=== PATIENT | male | born 1995 | race Caucasian/White ===

== ENCOUNTER 2017-11-01 21:10 | Inpatient (IN) | payer OTHER ==
[~2017-11-01] VITALS: Ht 185.4 cm; Wt 70.3 kg
--- NOTE | 2017-11-01 21:45 | NUR ---
INTAKE ASSESSMENT PT RECEIVED A/A/O X4.HE IS HERE BECAUSE HE HAS BEEN ABUSING HIS PRESCRIPTION ATIVAN.DENIES ANY OTHER DRUG USE.PT HAS HX OF ALCOHOL ABUSE BUT HE HAS BEEN SOBER SINCE JULY 2016.VITAL SIGNS ARE STABLE.SPEECH IS CLEAR AND COHERENT.GAIT IS STEADY.PT IS C/O OF ANXIETY,TREMORS AND MILD HEADACHE.HE IS IN A STABLE CONDITION TO PROCEED TO [facility].
[2017-11-01] MEDS ORDERED: DICYCLOMINE HCL 20 MG TABLET PO PRN (22:15)
[2017-11-01] MEDS ORDERED: MAG HYDROX/AL HYDROX/SIMETH 30 ML LIQUID UDC PO PRN (22:15)
[2017-11-01] MEDS ORDERED: MAGNESIUM HYDROXIDE 30 ML LIQUID UDC PO PRN (22:15)
[2017-11-01] MEDS ORDERED: LORAZEPAM 2 MG/1 ML VIAL IM PRN (22:15)
[2017-11-01] MEDS ORDERED: THIAMINE HCL 200 MG/2 ML VIAL IM ONE (22:15)
[2017-11-01] MEDS ORDERED: ONDANSETRON ODT 4 MG TAB.RAPDIS SL PRN (22:15)
[2017-11-01] MEDS ORDERED: LOPERAMIDE HCL 2 MG CAPSULE PO PRN ×2 (22:15)
[2017-11-01] MEDS ORDERED: IBUPROFEN 400 MG TABLET PO PRN (22:15)
[2017-11-01] MEDS ORDERED: ONDANSETRON 4 MG/2 ML VIAL IM PRN (22:15)
[2017-11-01] MEDS ORDERED: ACETAMINOPHEN 325 MG TABLET PO PRN (22:15)
[2017-11-01] MEDS ORDERED: MIRALAX 17 GM POWD.PACK PO PRN (22:15)
[2017-11-01] MEDS ORDERED: LORAZEPAM 1 MG TABLET PO PRN ×2 (22:15)
--- NOTE | 2017-11-01 22:30 | NUR ---
ADMISSION NOTE HT=6 FEET, 1 INCH. BW=685 POUNDS. NKDA; NKFA. CIWA=9 B/P=147/70; T=98.2; P=101; R=18; O2 SAT =97% ON RA. 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 notified.All safety measures in place per hospital policy.Call light is within reach. Will continue to monitor for safety. Addendum: 11/02/17 at 0059 by MAHOGANY CABRERA RN CORRECTION---PT STATED THAT HE HAS BEEN SOBER FROM ALCOHOL SINCE JULY 2017.
[2017-11-01] MEDS ORDERED: SERT50TA PO (22:44)
[2017-11-01] MEDS ORDERED: S-AD200T6 PO (22:44)
[2017-11-01] MEDS ORDERED: NALT50TA PO (22:44)
[2017-11-01] MEDS ORDERED: LORA1TAB PO (22:44)
[2017-11-01] MEDS ORDERED: TYROSINE PO (22:44)
[2017-11-01] MEDS ORDERED: OMEG1CAP40 PO (22:44)
[2017-11-01] MEDS ORDERED: 5-HY50CA2 PO (22:44)
[2017-11-01 22:45] LABS: *AMPHETAMINE, URINE NEGATIVE (NEGATIVE); *BARBITURATE, URINE NEGATIVE (NEGATIVE); *CANNABINOID, URINE NEGATIVE (NEGATIVE); *COCCAINE, URINE NEGATIVE (NEGATIVE); *OPIATE, URINE NEGATIVE (NEGATIVE); *PHENCYCLIDINE SCREEN,URINE NEGATIVE (NEGATIVE)
[2017-11-01 22:59] LABS: BASOPHILS # (AUTO) 0.1 K/uL (0.0-8.0); BASOPHILS % (AUTO) 0.7 % (0.0-2.0); HEMATOCRIT 41.7 % (36.7-47.1); HEMOGLOBIN 14.3 g/dL (12.5-16.3); LYMPHOCYTES # (AUTO) 1.4 K/uL (20.0-40.0); LYMPHOCYTES % (AUTO) 14.9 % (20.5-51.5); MEAN CORPUSCULAR HEMOGLOBIN 31.5 uug (23.8-33.4); MEAN CORPUSCULAR HGB CONC 34 g/dL (32.5-36.3); MEAN CORPUSCULAR VOLUME 91.6 fL (73.0-96.2); MONOCYTES # (AUTO) 0.2 K/uL (2.0-10.0); MONOCYTES % (AUTO) 2.6 % (0.0-11.0); NEUTROPHILS # (AUTO) 7.9 K/uL (1.8-8.9); NEUTROPHILS % (AUTO) 81.8 % (38.5-71.5); PLATELET COUNT (AUTO) 233 K/uL (152-348); RED BLOOD CELL COUNT(AUTO) 4.56 MIL/uL (4.06-5.63); WHITE BLOOD COUNT (AUTO) 9.6 K/uL (3.6-10.2)
[2017-11-01] MEDS ORDERED: DIAZEPAM 10 MG TABLET PO PRN ×2 (23:00)
[2017-11-01] MEDS ORDERED: DIAZEPAM 5 MG TABLET PO PRN (23:00)
[2017-11-01 23:10] LABS: ALANINE AMINOTRANSFERASE 45 U/L (16-63); ALKALINE PHOSPHATASE 72 U/L (50-136); AMYLASE 52 U/L (25-115); ASPARTATE AMINOTRANSFERASE 32 U/L (15-37); BILIRUBIN,TOTAL 0.4 mg/dL (0.2-1.0); CARBON DIOXIDE 28 mmol/L (21-32); CHLORIDE 98 mmol/L (98-107); GLUCOSE 122 mg/dL (74-106); LIPASE 77 U/L (73-393); POTASSIUM 3.5 mmol/L (3.5-5.1); TOTAL PROTEIN, SERUM 8.3 g/dL (6.4-8.2); UREA NITROGEN, BLOOD 11 mg/dL (7-18)
--- NOTE | 2017-11-01 23:10 | NUR ---
PRN MED PT C/O FEELING ANXIOUS,HAVING TREMORS AND MILD HEADACHE.PRN VALIUM 10 MG PO GIVEN FOR CIWA=9.WILL MONITOR.
[2017-11-01 23:15] LABS: ETHANOL < 3 MG/DL (0-0)
[2017-11-01 23:21] LABS: THYROID STIMULATING HORMONE 0.707 mIU/mL (0.358-3.740)
[2017-11-02] VITALS: BP 125/79
--- NOTE | 2017-11-02 00:10 | NUR ---
PT STATES FEELING BETTER.CIWA=3.
[2017-11-02 04:00] VITALS: BP 94/44
--- NOTE | 2017-11-02 04:05 | NUR ---
PRN VALIUM 5 MG PO GIVEN FOR CIWA OF 6.PT IS C/O ANXIETY,RESTLESSNESS AND IS UNABLE TO SIT STILL.WILL CONTINUE TO MONITOR FOR EFFECTIVENESS.
[2017-11-02] MEDS ORDERED: GABA-534 PO (04:22)
--- NOTE | 2017-11-02 05:00 | NUR ---
Unable to assess for CIWA at this time due to Pt being asleep;breathing is even and non labored;all safety measures in place;will be monitored for safety.
--- NOTE | 2017-11-02 06:51 | NUR ---
END OF SHIFT Pt is a 22 y/o admitted for BENZO withdrawals.Pt is a/o x 4.NKA,on regular diet and full code status.CIWA score was 9 upon admission.Pt was given PRN Valium x 2 and was effective;last CIWA was 6 at 0400.No c/o pain noted.PO fluids encouraged as tolerated.Pt slept 5 hrs; fluid intake was 796 mls, voided x 1.Pt is on fall and seizure precautions. All safety measures in place.Call light is within reach. Will continue to monitor for safety.
--- NOTE | 2017-11-02 07:30 | NUR ---
START OF SHIFT Pt is a 22 yr old male, AA&Ox4. pt was admitted on 11/01/17 for Benzo w/d and is on PRN's for s/s of w/d. Received report from restaurant shift leader nurse. Pt received Valium PRN x2 for s/s of w/d. Medication was effective. Pt slept for 6 hrs during the night. Last CIWA was 6 at 0400. Pt is currently in bed sleeping with respirations even and unlabored. Safety precautions observed. Call light is within reach. Will continue to monitor.
[2017-11-02 08:00] VITALS: BP 115/69
[2017-11-02] MEDS ORDERED: TUBERCULIN,PURIF.PROT.DERIV. 5 TU/0.1 ML TEST ID ONE (09:00)
[2017-11-02] MEDS: THIAMINE HCL 100 MG TABLET PO SCH (09:28)
[2017-11-02] MEDS: MULTIVITAMINS,THERAPEUTIC TABLET PO SCH (09:29)
[2017-11-02] MEDS: DIAZEPAM 10 MG TABLET PO SCH ×4 (09:29→21:07)
[2017-11-02] MEDS: FOLIC ACID 1 MG TABLET PO SCH (09:29)
[2017-11-02] MEDS: SERTRALINE HCL 50 MG TABLET PO SCH (09:46)
[2017-11-02 12:00] VITALS: BP 103/59
[2017-11-02 16:00] VITALS: BP 132/66
--- NOTE | 2017-11-02 19:15 | NUR ---
END OF SHIFT NOTE. Pt is a 22 yr old male, AA&Ox4. Pt was admitted on 11/01/17 for Benzo withdrawal and started on 5 day Valium taper as ordered. Medications was effective. Pt c/o anxiety and sweats but is was able to cope with anxiety level. Pt has been cooperative with medication regimen and plan of care. Pt refused to attend group stating he feels tired. Skin is intact, warm and moist to touch. Last CIWA score is 6. Pt was encouraged increase fluid intake. Pt consumed 25% breakfast and 100% lunch and dinner. No PRN's were given during the day. Safety precautions observed.
--- NOTE | 2017-11-02 19:30 | NUR ---
START OF SHIFT NOTE : Pt is a 22 y/o admitted for medically supervised withdrawal of Benzos on 11/01/2017. Pt stated he had seizures as a child due to high fever. Pt. presented with tremors bilaterally. Pt. presents with anxiety , worried about his future and professional life. He complains of difficulty falling asleep, waking up frequently , restless sleep. Listen to the patient , motivated him to stay sober after Detox and Rehabilitation, to think positive about future. Safety measures in place : bed on lowest position with side rails x2 up for safety, call light within reach. Will continue to monitor closely and offer help.
[2017-11-02 20:00] VITALS: BP 96/50
--- NOTE | 2017-11-02 21:00 | NUR ---
PRN BENADRYL PRN BENADRYL PO GIVEN FOR Sleeplessness. Safety measures in place : bed on lowest position with side rails x2 up for safety, call light within reach. Will continue to monitor closely and offer help.
[2017-11-02] MEDS: diphenhydrAMINE 50 MG CAPSULE PO PRN (21:07)
--- NOTE | 2017-11-02 22:00 | NUR ---
RE-ASSESSMENT DULCE MARIA Pt. is sleeping, RR=16, unlabored and even . Safety measures in place : bed on lowest position with side rails x2 up for safety, call light within reach. Will continue to monitor closely and offer help.
--- NOTE | 2017-11-03 06:41 | NUR ---
END OF SHIFT NOTE : Pt is a 22 y/o admitted for medically supervised withdrawal of Benzos on 11/01/2017. Pt stated he had seizures as a child due to high fever. Pt. is compliant with a TX plan, PRN given during security shift manager : BENADRYL. Pt. slept for most of the night. CIWA taken when pt. was awake, last CIWA=6 at 04:00. Qygwrh=[id number] , voided x2 , slept=6 hours. Safety measures in place : bed on lowest position with side rails x2 up for safety, call light within reach. Will continue to monitor closely and offer help.
--- NOTE | 2017-11-03 07:30 | NUR ---
start of shift note: received pt from restaurant shift supervisor nurse, pt is in stable condition no s/s of pain or discomfort.pt is admitted to [facility] for [facility] WITHDRAWAL/DEPENDENCE. pt's last noted ciwa is 6, will continue to monitor pt for any changes and continue to monitor pt for any changes
[2017-11-03] MEDS: SERTRALINE HCL 50 MG TABLET PO SCH (08:47)
[2017-11-03] MEDS: MULTIVITAMINS,THERAPEUTIC TABLET PO SCH (08:47)
[2017-11-03] MEDS: GABAPENTIN 300 MG CAPSULE PO SCH ×3 (08:47→21:28)
[2017-11-03] MEDS: THIAMINE HCL 100 MG TABLET PO SCH (08:47)
[2017-11-03] MEDS: FOLIC ACID 1 MG TABLET PO SCH (08:47)
[2017-11-03] MEDS: DIAZEPAM 10 MG TABLET PO SCH ×4 (08:47→22:44)
[2017-11-03 09:26] VITALS: BP 110/68
[2017-11-03 13:38] VITALS: BP 130/64
[2017-11-03 17:39] VITALS: BP 104/63
--- NOTE | 2017-11-03 19:03 | NUR ---
end of shift note: pt is in stable condition no s/s of pain or discomfort. [facility]dependence. pt's last ciwa is 6. pt refused 1500 dose of valium , verbalized he wants to leave early and feels fine. pt tolerated valium dose in am well no a/r. will endorse pt to third shift lieutenant nurse Addendum: 11/03/17 at 1911 by LOWELL RANDOLPH RN error in ciwa number ciwa is 3 not 6
--- NOTE | 2017-11-03 19:30 | NUR ---
START OF SHIFT NOTE : Pt is a 22 y/o admitted for medically supervised withdrawal of Benzos on 11/01/2017. Pt stated he had seizures as a child due to high fever. Pt. is compliant with a TX plan, No PRN given during day shift , pt refused his day dose of Valium and doesnt want to take evening dose today. CIWA taken when pt. was awake, last CIWA=3 at 16:00. Pt. is motivated facility ALEXANDRA, states he has minimal withdrawal signs- increased level of anxiety, insomnia. Skin is intact, warm and dry to touch. Safety measures in place : bed on lowest position with side rails x2 up for safety, call light within reach. Will continue to monitor closely and offer help.
[2017-11-03 20:00] VITALS: BP 123/77
[2017-11-04 06:06] LABS: HEPATITIS B SURFACE AG Negative (Negative)
--- NOTE | 2017-11-04 06:35 | NUR ---
END OF SHIFT NOTE : Pt is a 22 y/o admitted for medically supervised withdrawal of Benzos on 11/01/2017. Pt stated he had seizures as a child due to high fever. Pt. is compliant with a TX plan, NO PRN given during slot shift manager. CIWA taken when pt. was awake, last CIWA=5 at 04:00. Intake=1,546ml , voided x2 , slept=5 hours. Pt. is very optimistic about his future, he wants to study and get his Master Degree. Safety measures in place : bed on lowest position with side rails x2 up for safety, all light within reach. Will continue to monitor closely and offer help.
--- NOTE | 2017-11-04 07:10 | NUR ---
Start Of Shift Report Received from overnight babysitter nurse. Pt is a 22 y/o admitted for medically supervised withdrawal of Benzos. Pt is on a 5 day Valium taper. Pt's last CIWA was a 5. Pt is motivated, anxious, and worried. Pt did not receive any PRN medications last night. Pt is currently in his room watching TV. Pt encouraged to drink fluids to help facilitate with the detox process. he slept a total of 8 hours. Pt c/o feeling anxious, and not at an ease. Pt educated on relaxation techniques. All safety measures in place will continue to monitor pt.
[2017-11-04 08:00] VITALS: BP 111/60
[2017-11-04] MEDS ORDERED: DIAZEPAM 5 MG TABLET PO SCH ×3 (09:00)
[2017-11-04] MEDS: MULTIVITAMINS,THERAPEUTIC TABLET PO SCH (09:12)
[2017-11-04] MEDS: SERTRALINE HCL 50 MG TABLET PO SCH (09:12)
[2017-11-04] MEDS: GABAPENTIN 300 MG CAPSULE PO SCH ×3 (09:12→21:31)
[2017-11-04] MEDS: FOLIC ACID 1 MG TABLET PO SCH (09:13)
[2017-11-04] MEDS: THIAMINE HCL 100 MG TABLET PO SCH (09:13)
--- NOTE | 2017-11-04 09:30 | NUR ---
Pt refused his scheduled Valium taper, pt educated on risks and benifitsX3 but continued to refuse , MD notified and aware.
--- NOTE | 2017-11-04 10:33 | NUR ---
Therapist met with client and discussed the positive reasons for attending groups. Client agreed to attend all groups today.
[2017-11-04 12:00] VITALS: BP 115/65
[2017-11-04] MEDS: DIAZEPAM 5 MG TABLET PO SCH ×3 (14:25→21:31)
[2017-11-04 16:00] VITALS: BP 110/63
--- NOTE | 2017-11-04 17:22 | NUR ---
REFUSED MED Pt refused his scheduled Valium taper, pt educated on risks and benefits explained, offered x3, but continued to refuse , MD notified and aware.
--- NOTE | 2017-11-04 19:03 | NUR ---
END OF SHIFT NOTE Patient presented with anxiety, agitation. Scheduled medications were given, patient refused his scheduled Valium in the afternoon and evening offered x3 risk and benefits explained, pt verbalized understanding. MD notified. Vital signs WNL. Received care from primary nurse at 1715. Patient attended groups and activities. Safety measures in place. Patient endorsed to night nurse in stable condition.
--- NOTE | 2017-11-04 19:30 | NUR ---
Start of Shift Notes: Upon start of shift, pt lying bed with eyes closed. During assessment, pt is AOx4. Current plan of care explained to pt. Per day shift nurse, last CIWA was 4 at 1600. Bed in lowest position. Side rails up x2. Call light functioning and within reach. All needs attended and met. Will continue to monitor.
[2017-11-04 20:00] VITALS: BP 90/68
[2017-11-05] VITALS: BP 111/61
[2017-11-05] MEDS: diphenhydrAMINE 50 MG CAPSULE PO PRN (01:33)
--- NOTE | 2017-11-05 01:33 | NUR ---
Benadryl PRN: Pt c/o inability to sleep. Benadryl PRN given as ordered. Will continue to monitor.
--- NOTE | 2017-11-05 07:05 | NUR ---
End of Shift Notes: Pt currently in bed with eyes closed. Last CIWA was 5 at 0000. Pt was able to sleep for 4 hours. Pt c/o difficulty to sleep. PRN Benadryl given as ordered. Bed in lowest position. Side rails up x2. All needs attended and met. Call light functioning and within reach. Will endorse to day shift nurse.
--- NOTE | 2017-11-05 07:30 | NUR ---
START OF SHIFT Pt is a 22 yr old male, AA&Ox4. Pt was admitted on 11/01/17 for Benzo W/d and is on 5 day Valium taper ending on 11/06/17. Medication raúl well. Received report from cam maker nurse. Pt received Benadryl PRN for sleep. Pt slept for 5 hrs. Last CIWA score was 5 at 0000. Pt is currently in bed sleeping with respirations even and unlabored. Safety precautions observed. Call light is within reach. Will continue to monitor.
[2017-11-05 08:00] VITALS: BP 114/58
[2017-11-05] MEDS ORDERED: DIAZEPAM 5 MG TABLET PO SCH ×3 (09:00)
[2017-11-05] MEDS: MULTIVITAMINS,THERAPEUTIC TABLET PO SCH (09:32)
[2017-11-05] MEDS: DIAZEPAM 5 MG TABLET PO SCH ×2 (09:32→21:00)
[2017-11-05] MEDS: FOLIC ACID 1 MG TABLET PO SCH (09:32)
[2017-11-05] MEDS: GABAPENTIN 300 MG CAPSULE PO SCH ×3 (09:32→21:00)
[2017-11-05] MEDS: THIAMINE HCL 100 MG TABLET PO SCH (09:33)
[2017-11-05] MEDS: SERTRALINE HCL 50 MG TABLET PO SCH (09:33)
--- NOTE | 2017-11-05 09:45 | NUR ---
NSG NOTES Pt was going to refuse Valium 5mg PO as scheduled at 0900. Pt states of wanting to be discharge early. Pt was educated on the importance of Valium towards helping with benzo w/d. Pt was able to verbalize understanding. Valium 5mg PO was administered as ordered. Pt continued to state of wanting to be discharged early, stating he needs to go back to school. Dr. Hernandez and Case Management is made aware. Will continue to monitor.
[2017-11-05 12:00] VITALS: BP 118/72
[2017-11-05 16:00] VITALS: BP 111/60
[2017-11-05] MEDS: HYDROXYZINE PAMOATE 25 MG CAPSULE PO PRN (18:55)
--- NOTE | 2017-11-05 19:00 | NUR ---
END OF SHIFT Pt is a 22 yr old male, AA&Ox4. Pt was admitted on 11/01/17 for benzo withdrawal and is on 5 day Valium taper. Pt has been cooperative with medication regimen and attended group therapy during the day. Pt received Vistaril 25mg PO PRN for anxiety at 1855. Endorsed to night auditor nurse to re-assess. Pt has been observed with anxiety and agitation due to discharge date. Pt states of wanting to be discharged early due to school. Pt was educated by MD and Staff in the importance of finishing treatment. Pt needs further education. Last CIWA score was 4 at 1600. Pt consumed 100% of all meals. Safety precautions observed. Call light is within reach.
--- NOTE | 2017-11-05 19:12 | NUR ---
Start of shift note Received report from day shift nurse. Pt is a 22 yo male, A+Ox4, presenting to [facility] for Benzo withdrawal. Pt noted with anxiety and restlessness. Pt has HX of Anxiety, Depression, and Seizures which will be monitored throughout shift. Respirations even and unlabored. Will continue to monitor.
[2017-11-05 20:32] VITALS: BP 114/75
[2017-11-06 00:18] VITALS: BP 119/71
[2017-11-06] MEDS: diphenhydrAMINE 50 MG CAPSULE PO PRN ×2 (01:50→23:36)
--- NOTE | 2017-11-06 01:50 | NUR ---
PRN Benadryl Pt c/o inability to sleep and requested for PRN Benadryl. Medication given and tolerated well. Will reassess within 1 HR. Will continue to monitor.
--- NOTE | 2017-11-06 02:45 | NUR ---
PRN Benadryl Reassessment Medication effective. Pt is resting well in bed. No s/s of ASE noted at this time. Respirations even and unlabored. Will continue to monitor.
[2017-11-06 04:34] VITALS: BP 127/77
--- NOTE | 2017-11-06 07:00 | NUR ---
End of shift note Pt continuously noted with anxiety and restlessness throughout shift. Pt was out of room frequently to get food from kitchen and to smoke on patio at times. Pt refused scheduled @2100 dose of Valium taper stating I dont have any withdrawal symptoms and I want to go home tomorrow, I will ask the doctor in the morning. Pt was given PRN Benadryl for inability to sleep @0150. Pt slept for a total of 5 HRS. Last CIWA: 4 @0400. V/S WNL throughout shift. Respirations even and unlabored. Will endorse to day shift nurse.
--- NOTE | 2017-11-06 07:30 | NUR ---
START OF SHIFT Pt is a 22 yr old male, AA&Ox4. Pt was admitted on 11/01/17 for Benzo W/d and is on 5 day Valium taper ending on 11/06/17. Medication raúl well. Received report from hourly shift manager nurse. Pt received Benadryl PRN for sleep. Pt slept for 5 hrs. Last CIWA score was 4 at 0400. Pt refused to take Valium 5mg PO as scheduled at 2100. Pt is currently in bed sleeping with respirations even and unlabored. Safety precautions observed. Call light is within reach. Will continue to monitor.
[2017-11-06 08:00] VITALS: BP 104/52
[2017-11-06] MEDS ORDERED: DIAZEPAM 5 MG TABLET PO SCH ×2 (09:00)
--- NOTE | 2017-11-06 09:00 | NUR ---
MEDICATION REFUSED Pt refused to take Valium 5mg PO as scheduled at 0900. Pt states "I don't need it anymore, I feel fine". Pt was educated on the importance of medication regimen. Pt was able to verbalize understanding but continues to refuse.
[2017-11-06] MEDS: MULTIVITAMINS,THERAPEUTIC TABLET PO SCH (09:52)
[2017-11-06] MEDS: THIAMINE HCL 100 MG TABLET PO SCH (09:52)
[2017-11-06] MEDS: FOLIC ACID 1 MG TABLET PO SCH (09:52)
[2017-11-06] MEDS: SERTRALINE HCL 50 MG TABLET PO SCH (09:52)
[2017-11-06] MEDS: GABAPENTIN 300 MG CAPSULE PO SCH ×3 (09:52→20:13)
--- NOTE | 2017-11-06 10:15 | NUR ---
PATIENT ENDORSEMENT Received endorsement report from BONI Maher. Patient refused his last dose of Valium scheduled at 0900 this morning, aware. Training Program Assistant introduced self to patient. Patient did not verbalize any concerns at this time. Will continue to monitor patient.
--- NOTE | 2017-11-06 10:55 | NUR ---
ENDORSED PT TO RN Gave report to Ora AKHTAR to continue with care. Pt is in stable condition. Last CIWA score was 7 at 0800. Pt refused Valium 5mg PO PRN as scheduled at 0900. Dr. Hernandez is made aware. Safety precautions observed.
[2017-11-06 12:00] VITALS: BP 121/76
[2017-11-06 16:00] VITALS: BP 105/53
--- NOTE | 2017-11-06 18:58 | NUR ---
END OF SHIFT Patient is 22 year old male admitted for medically supervised withdrawal from benzodiazepine. Alert and oriented X4. Patient is full code with NKA. Most recent CIWA: 5. Med compliant with routine meds during this shift. Denies SOB, chest pain. Vitals WNL. Patient reports anxiety, tremors and fullness around head. Patient tolerating meals without n/v. night shift managernight stocker will continue to monitor patient. Pending discharge tomorrow.
--- NOTE | 2017-11-06 19:16 | NUR ---
Start of shift note Received report from day shift nurse. Pt is a22 yo male, A+Ox4, presenting to [facility] for Benzo withdrawal. Pt noted with agitation, anxiety, and restlessness. Pt has completed 5 day Valium taper, tolerated well, and is due for discharge tomorrow. Pt has HX of depression, anxiety, and Seizures which will be monitored during shift. Respirations even and unlabored. Will continue to monitor.
[2017-11-06] MEDS: HYDROXYZINE PAMOATE 25 MG CAPSULE PO PRN (20:13)
--- NOTE | 2017-11-06 20:13 | NUR ---
PRN Vistaril Pt c/o anxiety and requested for PRN Vistaril. Medication given and tolerated well. Will reassess within 1 HR. Will continue to monitor.
[2017-11-06 20:32] VITALS: BP 143/71
--- NOTE | 2017-11-06 21:10 | NUR ---
PRN Vistaril Reassessment Medication effective. Pt expresses reduction in anxiety. No s/s of ASE noted at this time. Respirations even and unlabored. Will continue to monitor.
--- NOTE | 2017-11-06 23:36 | NUR ---
PRN Benadryl Pt c/o inability to sleep and requested for PRN Benadryl. Medication given and tolerated well. Will reassess within 1 HR. Will continue to monitor.
[2017-11-07] MEDS ORDERED: HYDR-3895 PO (00:14)
[2017-11-07] MEDS ORDERED: GABA-534 PO (00:14)
[2017-11-07] MEDS ORDERED: DIPH50CA37 PO (00:14)
[2017-11-07 01:24] VITALS: BP 124/77
[2017-11-07 04:14] VITALS: BP 128/79
--- NOTE | 2017-11-07 06:50 | NUR ---
End of shift note Pt continuously noted with anxiety, restlessness, and agitation. Pt was out of room frequently to smoke on smoking patio, get food from kitchen, and interact with other patients in recreational room. Pt was given PRN Vistaril @2013 for anxiety, and PRN Benadryl @2336 for inability to sleep. Pt slept for a total of 5 HRS. Last CIWA: 4 @0400. Pt has completed 5 day Valium taper, and is due for discharge today. V/S WNL during shift. Respirations even and unlabored. Will endorse to day shift nurse.
--- NOTE | 2017-11-07 07:30 | NUR ---
Start of Shift Notes: Patient is a 22 year old male admitted for BZO withdrawal. Completed his 5-day Valium taper and will be discharging today. Received patient in his room. Awake, alert and oriented x 4. Appears anxious regarding the admission process. Reassurance was provided. Educated patient on the discharge process. Shower encouraged, patient appears disheveled. PRN Benadryl and Vistaril was given during the night. Last CIWA 4. Slept for 5 hours. Will continue to monitor closely.
[2017-11-07 08:00] VITALS: BP 119/53
[2017-11-07] MEDS: SERTRALINE HCL 50 MG TABLET PO SCH (08:35)
[2017-11-07] MEDS: FOLIC ACID 1 MG TABLET PO SCH (08:35)
[2017-11-07] MEDS: MULTIVITAMINS,THERAPEUTIC TABLET PO SCH (08:35)
[2017-11-07] MEDS: GABAPENTIN 300 MG CAPSULE PO SCH (08:35)
[2017-11-07] MEDS: THIAMINE HCL 100 MG TABLET PO SCH (08:35)
--- NOTE | 2017-11-07 09:35 | NUR ---
Discharged: Patient education provided regarding patient's discharge instructions. CIWA 5, patient presented with anxiety. Denies any complains of pain or discomfort noted. Patient verbalized good understanding of all his teachings. Returned medication, clothings and valuables to the patient. Secured all paperwork and belongings in his blue/black duffel bag. DIDACTIC INSTRUCTOR cabinet checked. Cassette checked. VS stable. Picked up by [facility] to be transported to [facility]. Escorted off the unit by DIDACTIC INSTRUCTOR.
== END 2017-11-07 09:35 | disposition home or self-care (01) | DRG 895 ==
LOC: SRC 21:10
PROVIDERS: ADMIT Internal Medicine; ATTEND Internal Medicine
PROC: HZ2ZZZZ Detoxification Services for Substance Abuse Treatment (ICD-10-PCS; principal; 2017-11-01)
PROC: HZ41ZZZ Group Counseling for Substance Abuse Treatment, Behavioral (ICD-10-PCS; 2017-11-02)
PROC: HZ31ZZZ Individual Counseling for Substance Abuse Treatment, Behavioral (ICD-10-PCS; 2017-11-04)
DX: F10.21 Alcohol dependence, in remission (principal); F13.230 Sedative, hypnotic or anxiolytic dependence with withdrawal, uncomplicated; R73.9 Hyperglycemia, unspecified; F90.9 Attention-deficit hyperactivity disorder, unspecified type; Z81.1 Family history of alcohol abuse and dependence; F32.9 Major depressive disorder, single episode, unspecified
CPT/HCPCS: 36415; 70030-TC; 80307; 83690; 83735; 84443; 85025; 86580; 86592; 86705; 86803; 87340; 87806; G0480; J3411; Q0163